=== PATIENT | female | born 1965 | race African-American/Black ===

== ENCOUNTER 2020-01-23 13:35 | Emergency (ER) | payer SELFPAY ==
[~2020-01-23] VITALS: Ht 162.6 cm; Wt 114.0 kg
[2020-01-23 14:35] VITALS: BP 143/84
== END 2020-01-23 15:15 | disposition home or self-care (01) ==
LOC: ER 14:05
DX: M54.16 Radiculopathy, lumbar region (principal); M54.41 Lumbago with sciatica, right side
CPT/HCPCS: 99282